=== PATIENT | male | born 1990 ===

== ENCOUNTER 2017-03-10 02:37 | Emergency (ER) | payer SELFPAY ==
[~2017-03-10] VITALS: Ht 170.2 cm; Wt 72.6 kg
== END 2017-03-10 07:10 | disposition home or self-care (01) ==
LOC: CED 02:37
DX: T40.1X1A Poisoning by heroin, accidental (unintentional), initial encounter (principal); F17.200 Nicotine dependence, unspecified, uncomplicated
CPT/HCPCS: 99283; J2310; J2405